=== PATIENT | female | born 1955 | race Caucasian/White ===

== ENCOUNTER → 2021-11-04 06:34 | Outpatient (CLI) | payer OTHER, SELFPAY ==
--- NOTE | 2021-11-04 | DI.MRI.S_ITS ---
PROCEDURE: MR CERVICAL SPINE WO CON INDICATIONS: Spondylosis of cervical region TECHNIQUE: Noncontrast sagittal T1 spin echo and T2 fast spin echo, sagittal STIR, foraminal oblique sagittal T2 fast spin echo, and axial gradient echo or T2 fast spin echo through the cervical spine. COMPARISON: None. FINDINGS: Image quality: Excellent. Alignment and Curvature: There is reversal of the normal lordotic curve of the cervical spine. There is trace anterolisthesis of C4 on C5 trace retrolisthesis of C5 on C6. Bone Marrow: There is a spherical lesion involving the posterior aspect of the C5 vertebral body to the left of midline which has low T1 signal and high T2 signal and STIR signal measuring 6 mm. Is of uncertain etiology. Consider possible hemangioma versus cyst. Cannot exclude other etiology. Marrow demonstrates otherwise normal overall signal. Spinal Cord: Visualized spinal cord has normal size and signal. No cerebellar tonsillar herniation. Paraspinous Soft Tissues: No paravertebral masses. Prevertebral soft tissues are normal in thickness. C2-C3: No canal stenosis or foraminal stenosis. C3-C4: No canal stenosis. Right uncovertebral joint hypertrophy and facet hypertrophy. Moderate to severe right foraminal narrowing with right foraminal C4 nerve root impingement. C4-C5: Small central posterior osteophyte versus disc protrusion indenting on the ventral cord without canal stenosis. Bilateral facet hypertrophy. Bilateral uncovertebral joint hypertrophy. Moderate to severe bilateral foraminal narrowing with bilateral foraminal C5 nerve root impingement. C5-C6: Disc bulge. AP diameter of the canal is 11.3 mm. Right foraminal disc osteophyte complex. Left uncovertebral joint hypertrophy. Bilateral facet hypertrophy. Severe right foraminal narrowing with right foraminal C6 nerve root impingement. Moderate left foraminal narrowing with mild flattening deformity on the exiting left C6 nerve root. C6-C7: Mild broad-based posterior disc protrusion, eccentric to the right. AP diameter of the canal is 8.8 mm. The right side of the canal is more narrowed than the central portion of the canal. Bilateral uncovertebral joint hypertrophy and facet hypertrophy. Moderate bilateral foraminal narrowing with mild flattening deformity on the exiting bilateral C7 nerve roots. C7-T1: No canal stenosis or foraminal stenosis. IMPRESSION: 1. Diffuse spondylitic change including multilevel facet arthropathy and multilevel uncovertebral joint hypertrophy. 2. Moderate canal stenosis at C6-C7 secondary to posterior disc protrusion, eccentric to the right. 3. Significant multilevel foraminal narrowing as described above. 4. There is a 6 mm lesion in the posterior aspect of the C5 vertebra to the left of midline. It is of uncertain etiology. It may potentially represent a hemangioma or a bone cyst. Cannot exclude other etiology. Comment: Recommend CT cervical spine to further evaluate the C5 vertebra. Dictated by: Harvinder Wiggins M.D. on 11/04/2021 at 13:07 Approved by: Harvinder Wiggins M.D. on 11/04/2021 at 13:23
== END ==
PROVIDERS: Referring Provider Neurological Surgery; Visit Provider Neurological Surgery
DX: M47.812 Spondylosis without myelopathy or radiculopathy, cervical region (principal); M48.02 Spinal stenosis, cervical region
CPT/HCPCS: 72141